=== PATIENT | female | born 1990 | race American Indian/Alaskan Native ===

== ENCOUNTER 2016-11-26 18:50 | Outpatient (CLI) | payer MEDICAID ==
[2016-11-26 19:08] VITALS: BP 123/72
[2016-11-26] MEDS ORDERED: LACTATED RINGERS 500 ML IV ONE (19:25)
--- NOTE | 2016-11-27 10:47 | Ultrasound Report ---
ULTRASOUND BIOPHYSICAL PROFILE: History: well being Technique: Transabdominal ultrasound with Doppler interrogation. 2 - breathing movements 2 - movements 2 - posture and tone 2 - Qualitative amniotic fluid volume 8 - TOTAL SCORE OF POSSIBLE 8 Heart Rate (bpm) 150
--- NOTE | 2016-11-27 10:47 | Ultrasound Report ---
ULTRASOUND OB LIMITED History: well being Technique: Transabdominal ultrasound with Doppler interrogation. Gestation: Single Position: Cephalic Amniotic Fluid: Normal SANDY = 16.5 cm Placenta: Fundal Placental Grade: 0 Heart Rate: 150 BPM
== END 2016-11-26 20:24 | disposition home or self-care (01) ==
LOC: TRG 18:50
PROVIDERS: ATTEND Obstetrics & Gynecology
DX: O47.03 False labor before 37 completed weeks of gestation, third trimester (principal); Z3A.33 33 weeks gestation of pregnancy
CPT/HCPCS: 76815; 76819